=== PATIENT | male | born 1955 | race Two or more races ===

== ENCOUNTER 2023-07-06 07:08 | Outpatient (REF) | payer BC, SELFPAY ==
[2023-07-06 08:07] LABS: Cholesterol 177 mg/dL (<200); HDL Cholesterol 52 mg/dL (>40); LDL Cholesterol Calculated 112 mg/dL (<100); Triglycerides 69 mg/dL (<150)
== END 2023-07-06 07:09 | disposition home or self-care (01) ==
LOC: HO.LAB 07:08
PROVIDERS: Visit Provider Nurse Practitioner Family
DX: E78.00 Pure hypercholesterolemia, unspecified (principal); I25.10 Atherosclerotic heart disease of native coronary artery without angina pectoris
CPT/HCPCS: 36415; 80061

== ENCOUNTER 2023-11-15 13:30 | Outpatient (RCR) | payer BC, SELFPAY | END 2023-11-18 06:41 | disposition home or self-care (01) | LOC: HO.CR 13:30 | PROVIDERS: PCP Internal Medicine; Visit Provider Internal Medicine Cardiovascular Disease | DX: I25.10 Atherosclerotic heart disease of native coronary artery without angina pectoris (principal); Z98.61 Coronary angioplasty status | CPT/HCPCS: 93798 ==

== ENCOUNTER 2024-01-31 21:48 | Emergency (ER) | payer BC, SELFPAY ==
--- NOTE | 2024-01-31 | ECG_ITS ---
Test Reason : fall, chest discomfort Blood Pressure : / mmHG Vent. Rate : 061 BPM Atrial Rate : 061 BPM P-R Int : 178 ms QRS Dur : 130 ms QT Int : 442 ms P-R-T Axes : 031 -39 134 degrees QTc Int : 444 ms Sinus rhythm with frequent Premature ventricular complexes Left axis deviation Non-specific intra-ventricular conduction block Minimal voltage criteria for LVH, may be normal variant ( Erwin product ) T wave abnormality, consider lateral ischemia Abnormal ECG No previous ECGs available Referred By: Generic ED Physician Electronically Signed By:Sukumar Samuel
--- NOTE | ~2024-01-31 | CT_ITS ---
EXAMINATION: CT ABDOMEN AND PELVIS WITH CONTRAST CLINICAL INFORMATION: Trauma. Pain. COMPARISON: None available. TECHNIQUE: Multidetector volumetric images were obtained from the superior aspect of the liver through the pubic symphysis following administration 85 mL of Omnipaque 350 intravenous contrast. Sagittal and coronal reformatted images were obtained on the technologist's workstation. Oral contrast: No This CT examination was performed using dose optimization techniques as appropriate, variously including the following: *Automated exposure control *Adjustment of mA and/or kV according to patient size (this includes techniques or standardized protocols for targeted exams where dose is matched to indication/reason for exam; i.e. extremities or head) *Use of iterative reconstruction technique DLP: 1175 mGy-cm FINDINGS: LUNG BASES: There appears to be atelectasis or scarring at the anterior left lung base which is only partially imaged. LIVER, GALLBLADDER, AND BILIARY TREE: The liver is of diminished attenuation. There is no focal liver lesions are intrahepatic biliary duct dilatation. The gallbladder is unremarkable with no evidence of radiopaque gallstones, gallbladder wall thickening, or obvious pericholecystic inflammatory changes. PANCREAS: Unremarkable. SPLEEN: Unremarkable. ADRENAL GLANDS: Unremarkable. KIDNEYS AND URETERS: The kidneys are normal in size, shape, and attenuation. No hydronephrosis, hydroureter, or calculi seen. No perinephric stranding. BLADDER: Unremarkable. GASTROINTESTINAL TRACT: The small and large bowel are unremarkable. The appendix is unremarkable. There is mild upper mesenteric fatty infiltrative change. ABDOMINAL WALL: No significant hernia is appreciated. LYMPH NODES: Normal. VASCULAR: There is atherosclerotic plaque of the abdominal aorta. PELVIC VISCERA: The prostate gland is enlarged measuring 5.9 x 4.7 x 5.8 cm. OSSEOUS STRUCTURES: There is diffuse thoracolumbar disc and lower lumbar facet degenerative change. Moderate bilateral hip degenerative change with loss of joint space, subchondral sclerotic and cystic change as well as mild osteophyte formation. CT/CT abdomen pelvis w IV con IMPRESSION: 1. No evidence of acute traumatic injury in the abdomen or pelvis. 2. Hepatic steatosis. 3. Enlarged prostate gland. 4. Diffuse thoracolumbar disc and lower lumbar facet degenerative change. 5. Moderate bilateral hip degenerative change. Fleischner guidelines were followed.
--- NOTE | ~2024-01-31 | XR_ITS ---
EXAMINATION: XR CHEST CLINICAL INFORMATION: Trauma. Pain. COMPARISON: None available. TECHNIQUE: 2 views of the chest were obtained. FINDINGS: The cardiomediastinal silhouette is within normal limits. There appears to be atelectasis at the left lung base. The lungs are otherwise clear. The bony structures and soft tissues are unremarkable. XR/XR chest 2V IMPRESSION: Atelectatic change at the left lung base. No significant abnormality.
--- NOTE | ~2024-01-31 | CT_ITS ---
EXAMINATION: CT cervical spine wo IV con, CT head/brain wo IV con INDICATION INFORMATION: Reason for Exam trauma, fall, neck pain/tenderness COMPARISON: None TECHNIQUE: Separate noncontrast CT examinations of the head and cervical spine were performed. Coronal and sagittal images were created for each examination at the technologist workstation. This CT examination was performed using dose optimization techniques as appropriate, variously including the following: *Automated exposure control *Adjustment of mA and/or kV according to patient size (this includes techniques or standardized protocols for targeted exams where dose is matched to indication/reason for exam; i.e. extremities or head) *Use of iterative reconstruction technique DLP: 1407 mGy-cm FINDINGS: Head: No acute osseous or soft tissue abnormality. The mastoids are clear. Mild scattered paranasal sinus mucosal thickening. Posterior nasal cavity polyps. There is no evidence of acute intracranial hemorrhage or territorial infarction. No abnormal mass effect or midline shift is seen. [place] to white matter differentiation is well preserved. No extra-axial fluid collections are identified. No hydrocephalus. Proportional prominence of the ventricles and sulcal spaces is consistent with mild volume loss. There is no abnormal attenuation within the brain parenchyma. Cervical spine: There is no evidence of acute cervical spine fracture. Vertebral bodies remain normal in height. Trace anterolisthesis of C4 on C5. Otherwise normal alignment. Moderate multilevel cervical spondylosis. No pre- or paravertebral soft tissue abnormality is identified. Visualized portions of the lung apices are unremarkable. Mild thyromegaly. CT/CT cervical spine wo IV con IMPRESSION: 1. No acute intracranial abnormality. 2. No cervical spine fracture or traumatic malalignment. 3. Mild thyromegaly. Correlate with thyroid function tests.
[2024-01-31 22:02] VITALS: BP 119/74; PULSE 61; RESP 20; TEMP 36.6; O2SAT 92; BMI 35.9
[2024-01-31 22:56] LABS: MANUAL DIFF FLAG NO
[2024-01-31 22:57] LABS: Basophils Absolute Auto 0.1 X10*3/uL (0.0-0.2); Basophils Percent Auto 0.5 % (0-2); Eosinophils Absolute Auto 0.2 X10*3/uL (0.0-0.4); Eosinophils Percent Auto 1.5 % (0-4); Hematocrit 42.6 % (42.0-52.0); Hemoglobin 14.4 g/dl (14.0-18.0); Imm Gran Abs Auto 0.11 X10*3/uL (0.00-0.03); Imm Gran Pct Auto 0.8 % (0.0-0.4); Lymphocytes Absolute Auto 1.7 X10*3/uL (1.2-4.9); Lymphocytes Percent Auto 12.3 % (20-40); Mean Corpuscular HGB Conc 33.8 g/dl (31.0-36.0); Mean Corpuscular Hemoglobin 32.5 pg (27.0-33.0); Mean Corpuscular Volume 96.2 fL (80.0-98.0); Mean Platelet Volume 11.1 fL (9.4-12.4); Monocytes Absolute Auto 0.5 X10*3/uL (0.1-1.2); Monocytes Percent Auto 3.6 % (2-11); Neutrophils Absolute Auto 11.1 x10*3/uL (2.0-8.3); Neutrophils Percent Auto 81.3 % (45-73); Platelet Count 204 X10*3/uL (160-400); Red Blood Count 4.43 X10*6/uL (4.60-5.80); Red Cell Distribution Width 12.6 % (11.0-16.0); White Blood Count 13.6 X10*3/uL (4.8-10.8)
[2024-01-31 22:59] VITALS: BP 137/74; PULSE 56; RESP 18; TEMP 36.8; O2SAT 97
[2024-01-31 23:02] LABS: INTERNATIONAL NORM RATIO 1.1 (0.9-1.1); Prothrombin Time 13.3 SEC (11.1-13.3)
[2024-01-31 23:04] LABS: Partial Thromboplastin Time 28.9 SEC (26.0-36.8)
--- NOTE | 2024-01-31 23:09 | ED.GENADULT ---
HPI - General Adult General Chief complaint: Fall Stated complaint: fell and hit head, back Time Seen by Provider: 01/31/24 23:09 History of Present Illness HPI narrative: The patient is a 68-year-old male who was doing yard work. He was emptying some cut grass into a bucket when the bucket fell [place] a slope on his property. The patient tried to grab the bucket fell and slid down the slope as well. Apparently he rolled down a hill of about 50 ft. He struck a tree. He believes he struck not know if he had loss of consciousness. He also has a lot of bruising in the lower back area. He has pain in his head, his neck, his chest, and his trunk. No numbness, tingling, weakness, burning. The patient had an AZ in May of 2023 and received distended [facility]. Otherwise he has been fairly healthy during his life. Related Data Previous Rx's ?Medication ?Instructions ?Recorded oxycodone 5 mg capsule 5 mg PO Q6H PRN pain #14 caps 02/01/24 Allergies Allergy/AdvReac Type Severity Reaction Status Date / Time Seasonal Allergies Allergy Eye Verified 01/31/24 22:08 Swelling Review of Systems Review of Systems: Yes all other systems are reviewed and are negative [facility] Social History Social History Alcohol intake: current Alcohol intake frequency: a few times a week Smoked in Last 30 Days: No Use of substances other than those prescribed or required for medical reasons: No Advance Directives: No Advance Directives Information Provided: Yes Physical Exam ED Vital Signs: Vital Signs - 24 hr 01/31/24 22:02 01/31/24 22:59 02/01/24 01:39 Temperature 97.9 F 98.2 F 97.2 F Pulse Rate 61 56 55 Respiratory Rate 20 18 20 Blood Pressure 119/74 137/74 171/57 H Pulse Oximetry 92 97 98 Oxygen Delivery Method Room Air Room Air Room Air 02/01/24 03:22 Temperature 97.2 F Pulse Rate 55 Respiratory Rate 20 Blood Pressure 171/57 H Pulse Oximetry 98 Oxygen Delivery Method Room Air BMI result Body Mass Index 35.9 Const Other: The patient is a muscular 68-year-old who was awake and alert. He seems mildly uncomfortable but not acutely toxic. HENMT Other: No obvious signs of trauma to the head or the face. No raccoon eyes. No lizarraga sign. Eyes Other: Pupils are round equal, conjunctivae are Neck Other: Mild posterior C-spine tenderness. Chest Other: Diffuse chest wall tenderness without crepitus or subcutaneous emphysema Resp Effort & Inspection: normal respiratory effort Auscultation: clear to auscultation bilaterally Cardio Rate: regular rate Rhythm: regular rhythm Heart sounds: S1 normal heart sound present and S2 normal heart sound present GI Other: Mild diffuse abdominal tenderness. Back/Spine/Pelvis Other: There is a large area of bruising in the region of the lower back. Skin Other: There is a large area of bruising in the lower back but the skin is intact. Neuro Other: The patient is awake and alert with a normal mental status. GCS 15. Cranial nerves are intact. He moves his extremities symmetrically and appropriately. No neurological deficits Extrem Other: No significant sign of trauma to the extremities Medications Administered Discontinued Medications Generic Name Dose Route Start Last Admin Trade Name Freq PRN Reason Stop Dose Admin Iohexol 85 ml 02/01/24 00:27 02/01/24 00:28 Iohexol 350 Mg/Ml 100 Ml Infus..Btl IV 02/01/24 00:28 85 ml ONCE ONE Administration Ketorolac Tromethamine 10 mg 02/01/24 02:49 02/01/24 03:00 Ketorolac Tromethamine 15 Mg/Ml Vial IVPUSH 02/01/24 02:50 10 mg ONCE ONE Administration Oxycodone HCl 5 mg 02/01/24 02:49 02/01/24 03:03 Oxycodone Hcl Immed Release 5 Mg Tablet PO 02/01/24 02:50 Not Given ONCE ONE Medical Decision Making Medical Decision Making [facility] Narrative: A 68-year-old male with a history of an AZ sustained an unusual blunt trauma when he fell down a hill. He is on Plavix. He hit his head and seems to describe having his ?george rung. His most impressive injury clinically is a very large area of ecchymosis in the lower back. He also has pain with breathing. Head CT is negative, cervical spine CT is negative. Chest x-ray shows no pneumothorax. Abdominal and pelvic CT shows no acute fractures or intra-abdominal injuries or retroperitoneal injuries. The patient was reassured that he does not seem to have any acutely dangerous injuries. He will be discharged with prescriptions for pain medication. Lab Data 01/31/24 22:51 01/31/24 22:51 Labs: Lab Results 01/31/24 Range/Units 22:51 WBC 13.6 H (4.8-10.8) X10*3/uL RBC 4.43 L (4.60-5.80) X10*6/uL Hgb 14.4 (14.0-18.0) g/dl Hct 42.6 (42.0-52.0) % MCV 96.2 (80.0-98.0) fL MCH 32.5 (27.0-33.0) pg MCHC 33.8 (31.0-36.0) g/dl RDW 12.6 (11.0-16.0) % Plt Count 204 (160-400) X10*3/uL MPV 11.1 (9.4-12.4) fL Immature Gran % (Auto) 0.8 H (0.0-0.4) % Neut % (Auto) 81.3 H (45-73) % Lymph % (Auto) 12.3 L (20-40) % [place] % (Auto) 3.6 (2-11) % Eos % (Auto) 1.5 (0-4) % Baso % (Auto) 0.5 (0-2) % Lymph # (Auto) 1.7 (1.2-4.9) X10*3/uL [place] # (Auto) 0.5 (0.1-1.2) X10*3/uL Eos # (Auto) 0.2 (0.0-0.4) X10*3/uL Baso # (Auto) 0.1 (0.0-0.2) X10*3/uL Abs Immat Gran (auto) 0.11 H (0.00-0.03) X10*3/uL Absolute Neuts (auto) 11.1 H (2.0-8.3) x10*3/uL Absolute Nucleated RBC 0.000 (0.0-0.012) X10*3/uL Nucleated RBC % (auto) 0.0 (0.0-0.2) /100WBC PT 13.3 (11.1-13.3) SEC INR 1.1 (0.9-1.1) APTT 28.9 (26.0-36.8) SEC Sodium 143 (135-145) mmol/L Potassium 4.1 (3.3-5.1) mmol/L Chloride 113 H (96-108) mmol/L Carbon Dioxide 20 L (22-29) mmol/L Anion Gap 14 (12-20) BUN 16 (9-16) mg/dL Creatinine 0.86 (0.5-1.4) mg/dL Estim Creat Clear Calc 102.2 Estimated GFR > 60 Random Glucose 109 (60-115) mg/dL Calcium 9.1 (8.4-10.2) mg/dL Total Bilirubin 0.3 (0.0-1.0) mg/dL AST 33 (5-37) U/L ALT 46 H (0-40) U/L Alkaline Phosphatase 63 (39-117) U/L Troponin I High Sens 12.0 (<3.5-35.0) ng/L Total Protein 6.7 (6.5-8.0) g/dL Albumin 3.9 (3.5-5.0) g/dL Discharge Plan Discharge Clinical Impression: Fall, Head injury, Contusion of lower back and pelvis, initial encounter Patient Disposition: Home, Self-Care Additional Instructions: You have a lot of bruising to the soft tissues of your lower back but fortunately your CT scans did not show any dangerous internal injuries. Please expect to be very sore over the next several days. You might feel worse before you start to feel better. You may take 2 extra-strength acetaminophen (Tylenol) up to 3 times a day as needed for pain. Additionally I have sent a prescription for oxycodone, a strong pain medication, to your pharmacy which you may use as well as needed. Use ice packs to the areas of greatest soreness several times a day. I think there is a strong possibility you may feel to injured to travel as scheduled to your next week. Please be very careful in making the your decision about travel. Please follow up with your regular doctor. Return to the emergency room if you feel significantly worse in any way. Prescriptions: New oxycodone 5 mg capsule 5 mg PO Q6H PRN (Reason: pain) Qty: 14 0RF Rx Instructions: Partial Fill upon patient request. Referrals: Rivka Hernández MD [Primary Care Provider] - (fall, multiple contusions) Interventions: ED Discharge Assessment Last Done: 02/01/24 03:22 Discharge Date/Time: 02/01/24 03:25 Print Language: Bahamian
[2024-01-31 23:10] LABS: Alanine Aminotransferase 46 U/L (0-40); Albumin Level 3.9 g/dL (3.5-5.0); Alkaline Phosphatase 63 U/L (39-117); Anion Gap 14 (12-20); Aspartate Amino Transferase 33 U/L (5-37); Bilirubin Total 0.3 mg/dL (0.0-1.0); Blood Urea Nitrogen 16 mg/dL (9-16); Calcium 9.1 mg/dL (8.4-10.2); Carbon Dioxide 20 mmol/L (22-29); Chloride 113 mmol/L (96-108); Creatinine Clr Calc Pharmacy 102.2; Estimated Glomerular Filt Rate > 60; Glucose Random 109 mg/dL (60-115); Potassium 4.1 mmol/L (3.3-5.1); Sodium 143 mmol/L (135-145); Total Protein 6.7 g/dL (6.5-8.0)
[2024-02-01] MEDS: iohexoL 350 MG/ML 100 ML INFUS..BTL 85 ML IV (00:28)
[2024-02-01 01:39] VITALS: BP 171/57; PULSE 55; RESP 20; TEMP 36.2; O2SAT 98
[2024-02-01] MEDS: Ketorolac Tromethamine 15 MG/ML VIAL 10 MG IVPUSH (03:00)
[2024-02-01 03:22] VITALS: BP 171/57; PULSE 55; RESP 20; TEMP 36.2; O2SAT 98
== END 2024-02-01 03:25 | disposition home or self-care (01) ==
PROVIDERS: Emergency Provider Emergency Medicine; PCP Internal Medicine
DX: S30.0XXA Contusion of lower back and pelvis, initial encounter (principal); S09.90XA Unspecified injury of head, initial encounter; W17.81XA Fall down embankment (hill), initial encounter; Y93.H2 Activity, gardening and landscaping; Y92.9 Unspecified place or not applicable; Y99.9 Unspecified external cause status; R07.9 Chest pain, unspecified
CPT/HCPCS: 36415; 70450; 71046; 72125; 74177; 80053; 84484; 85025; 85610; 85730; 93005; 96374; 99285; J1885; Q9967

== ENCOUNTER → 2024-01-31 22:35 | Outpatient (BNV) | payer BC, SELFPAY | PROVIDERS: Emergency Provider Emergency Medicine; PCP Internal Medicine; Visit Provider Internal Medicine Cardiovascular Disease | DX: I49.3 Ventricular premature depolarization (principal) | CPT/HCPCS: 93010 ==